=== PATIENT | female | born 1965 | race Caucasian/White ===

== ENCOUNTER → 2020-04-11 | Outpatient (CLI) | payer BC ==
[2020-04-11 13:28] VITALS: BP 140/88; PULSE 72; RESP 18; TEMP 98.3; BMI 41.6
--- NOTE | 2020-04-11 14:15 | P.HPBAR ---
Bariatric H&P - History & Physicial H&P Date: 04/11/20 History & Physicial: Visit/CC: lap band removal Patient initial contact: Initial weight: Initial weight in pounds: Height: 5 ft 4 in Initial BMI: Last weight: Current weight: 109.996 kg Current weight in pounds: 242.50 Current BMI: 41.6 [place] body weight (based on NIH guidelines): 54.431 kg Excess body weight loss: The patient is a 54 year-old F who presents for Bariatric Assessment. Patient presents today for LAP-BAND follow-up. She has not been seen in many years. She has complaints of GERD and dysphagia. She's had trouble keeping food down. Past Medical History Past Medical History: GERD/Reflux Additional Past Medical History / Comment(s): arthritis History of Any Multi-Drug Resistant Organisms: None Reported Past Surgical History: Bariatric Surgery, Section, Cholecystectomy, Hysterectomy, Orthopedic Surgery, Tonsillectomy Additional Past Surgical History / Comment(s): lap band; bilat knee replacement Past Anesthesia/Blood Transfusion Reactions: No Reported Reaction Additional Past Anesthesia/Blood Transfusion Reaction / Comm: hard time waking up post anesthesia Past Psychological History: Depression Smoking Status: Former smoker Surgical - Exam Vital Signs Temp Pulse Resp BP Pulse Ox 98.3 F 72 18 140/88 97 04/11/20 13:11 04/11/20 13:11 04/11/20 13:11 04/11/20 13:11 04/11/20 13:11 - General well developed, well nourished, no distress - Eyes PERRL - ENT normal pinna - Neck no masses - Respiratory normal expansion - Cardiovascular Rhythm: regular - Abdomen Abdomen: soft, non tender Bariatric Assessment & Plan Plan: GERD, dysphagia. Patient LAP-BAND was emptied she had 9 mL removed the band. Patient will be tentatively be off her aspirin conversion to sleeve gastrectomy. We went over the risks and benefits of the sleeve gastrectomy procedure. She'll follow-up in 8 weeks. Bariatric Checklist Checklist: Plan: Checklist: EGD: 1. Hiatal hernia: 2. H. Pylori: HgbA1c: Vitamin D: Smoking: Primary care physician referral: Dr. Pardo Psychiatry clearance: Cardiology clearance: Sleep study: Diet journal: VTE risk score: VTE risk level: Rehab needs at discharge:
== END | disposition home or self-care (01) ==
LOC: BARWHC3 12:51
PROVIDERS: ATTEND Surgery
DX: Z46.51 Encounter for fitting and adjustment of gastric lap band (principal); Z98.84 Bariatric surgery status; Z90.49 Acquired absence of other specified parts of digestive tract
CPT/HCPCS: 99212

== ENCOUNTER 2020-06-27 12:14 | Day surgery (SDC) | payer BC ==
[2020-06-24 12:06] VITALS: BMI 42.0
[2020-06-27 13:03] VITALS: RESP 16; TEMP 98.1
[2020-06-27] MEDS ORDERED: LACTATED RINGERS 1,000 ML IV ONE (13:03)
[2020-06-27] MEDS ORDERED: LIDOCAINE 1% (10MG/ML) FOR IV START INTRADERMA ONE (13:04)
[2020-06-27] MEDS ORDERED: PROPOFOL 10 MG/ML 20 ML VIAL IV ONE (14:18)
[2020-06-27] MEDS ORDERED: LIDOCAINE 1% INJ 10MG/ML (20 ML MDV) ONE (14:18)
--- NOTE | 2020-06-27 14:31 | P.GSHP ---
History of Present Illness H&P Date: 06/27/20 Chief Complaint: GERD, morbid obesity 84-year-old female undergoing workup for sleeve gastrectomy. Patient plaints of GERD. Past Medical History Past Medical History: GERD/Reflux, Osteoarthritis (OA) Additional Past Medical History / Comment(s): arthritis History of Any Multi-Drug Resistant Organisms: None Reported Past Surgical History: Bariatric Surgery, Section, Cholecystectomy, Hysterectomy, Orthopedic Surgery, Tonsillectomy Additional Past Surgical History / Comment(s): lap band; RIGHT TOTAL KNEE, LEFT TOTAL KNEE Past Anesthesia/Blood Transfusion Reactions: Motion Sickness Additional Past Anesthesia/Blood Transfusion Reaction / Comment(s): " hard time waking up post anesthesia" TAKES LONGER WAKING UP" Smoking Status: Former smoker - Past Family History Father Family Medical History: Cancer, Deep Vein Thrombosis (DVT) Additional Family Medical History / Comment(s): TONGUE CANCER Medications and Allergies Home Medications Medication Instructions Recorded Confirmed Type Acetaminophen/Diphenhydramine 1 tab PO HS 04/11/20 06/24/20 History [Tylenol PM 500-25mg] Calcipotriene/Betamethasone 1 applic TOPICAL DAILY 04/11/20 06/24/20 History [Taclonex Ointment] Ibuprofen 200 mg PO Q8H PRN 04/11/20 06/24/20 History Multivitamin [Multivitamins Adult 1 tab PO HS 04/11/20 06/24/20 History Gummies] buPROPion [Wellbutrin] 100 mg PO HS 04/11/20 06/24/20 History methocarbamoL [Robaxin] 500 mg PO HS 04/11/20 06/24/20 History Allergies Allergy/AdvReac Type Severity Reaction Status Date / Time etanercept [From Enbrel] Allergy Rash/Hives Verified 06/27/20 12:49 Surgical - Exam Vital Signs Temp Pulse Resp BP Pulse Ox 98.1 F 71 16 146/78 96 06/27/20 13:01 06/27/20 13:01 06/27/20 13:01 06/27/20 13:01 06/27/20 13:01 - General well developed, well nourished, no distress - Eyes PERRL - ENT normal pinna - Neck no masses - Respiratory normal expansion - Cardiovascular Rhythm: regular - Abdomen Abdomen: soft, non tender Assessment and Plan Assessment: Morbid obesity, BMI 43 GERD we'll perform EGD.
--- NOTE | 2020-06-27 14:38 | P.OP ---
Date of Procedure: 06/27/20 Preoperative Diagnosis: Morbid obesity GERD Postoperative Diagnosis: Antral gastritis Procedure(s) Performed: EGD Anesthesia: MAC Surgeon: Lui Mane Pathology: other Condition: stable Disposition: PACU Description of Procedure: The patient's placed on the endoscopy table in the lateral position. She received IV sedation. The gastric was placed oropharynx passed into the esophagus and into the stomach. Scope was then placed through the pylorus. The first and second portion of the duodenum appeared normal. Scope was then brought back the antrum and this appeared mildly inflamed. A biopsies performed. Scope was a flexed and remainder of the stomach appeared normal. There is no evidence of a hiatal hernia. The GE junction was at 440 cms. The distal esophagus appeared appeared mildly inflamed a biopsies performed.. The proximal esophagus. Normal. Scope withdrawn for patient.
[2020-06-27 14:47] VITALS: BP 120/83; PULSE 70
== END 2020-06-27 15:02 | disposition home or self-care (01) ==
LOC: ORWHC2ENDO 12:14
PROVIDERS: ATTEND Surgery
DX: K21.00 Gastro-esophageal reflux disease with esophagitis, without bleeding (principal); K29.50 Unspecified chronic gastritis without bleeding; E66.01 Morbid (severe) obesity due to excess calories; M19.90 Unspecified osteoarthritis, unspecified site; K08.89 Other specified disorders of teeth and supporting structures; K21.9 Gastro-esophageal reflux disease without esophagitis; Z68.41 Body mass index [BMI] 40.0-44.9, adult; Z98.84 Bariatric surgery status; Z98.890 Other specified postprocedural states; Z90.49 Acquired absence of other specified parts of digestive tract; Z90.710 Acquired absence of both cervix and uterus; Z90.89 Acquired absence of other organs; Z96.653 Presence of artificial knee joint, bilateral; Z87.898 Personal history of other specified conditions; Z91.89 Other specified personal risk factors, not elsewhere classified; Z87.891 Personal history of nicotine dependence; Z80.0 Family history of malignant neoplasm of digestive organs; Z82.49 Family history of ischemic heart disease and other diseases of the circulatory system; Z79.899 Other long term (current) drug therapy; Z79.52 Long term (current) use of systemic steroids; Z79.1 Long term (current) use of non-steroidal anti-inflammatories (NSAID); Z88.8 Allergy status to other drugs, medicaments and biological substances
CPT/HCPCS: 88305; 43239; J2001; J2704

== ENCOUNTER → 2020-07-04 | Outpatient (CLI) | payer BC ==
[2020-07-04 13:11] VITALS: BP 130/82; PULSE 79; RESP 18; TEMP 98.3; BMI 44.1
--- NOTE | 2020-07-04 14:22 | P.HPBAR ---
Bariatric H&P - History & Physicial H&P Date: 07/04/20 History & Physicial: Visit/CC: presurgical Patient initial contact: Initial weight: Initial weight in pounds: Height: 5 ft 4 in Initial BMI: Last weight: Current weight: 116.8 kg Current weight in pounds: 257.50 Current BMI: 44.1 [place] body weight (based on NIH guidelines): 54.431 kg Excess body weight loss: The patient is a 55 year-old F who presents for Bariatric Assessment. Patient presents today for presurgical consultation. She is doing a gastric band to sleeve conversion. She has a date later on this month for surgery. Patient has chronic issues dysphagia and GERD. Past Medical History Past Medical History: GERD/Reflux, Osteoarthritis (OA) Additional Past Medical History / Comment(s): arthritis History of Any Multi-Drug Resistant Organisms: None Reported Past Surgical History: Bariatric Surgery, Section, Cholecystectomy, Hysterectomy, Orthopedic Surgery, Tonsillectomy Additional Past Surgical History / Comment(s): lap band; RIGHT TOTAL KNEE, LEFT TOTAL KNEE Past Anesthesia/Blood Transfusion Reactions: Motion Sickness Additional Past Anesthesia/Blood Transfusion Reaction / Comm: " hard time waking up post anesthesia" TAKES LONGER WAKING UP" Past Psychological History: Depression Smoking Status: Former smoker Past Alcohol Use History: Rare Additional Past Alcohol Use History / Comment(s): STARTED SMOKING AT AGE 9 QUIT SMOKING IN 2013 SMOKED 1/4 PPD Past Drug Use History: None Reported - Past Family History Father Family Medical History: Cancer, Deep Vein Thrombosis (DVT) Additional Family Medical History / Comment(s): TONGUE CANCER Surgical - Exam Vital Signs Temp Pulse Resp BP 98.3 F 79 18 130/82 07/04/20 13:06 07/04/20 13:06 07/04/20 13:06 07/04/20 13:06 BMI 44 - General well developed, well nourished, no distress - Eyes PERRL - ENT normal pinna, normal nares - Neck no masses - Respiratory normal expansion - Cardiovascular Rhythm: regular - Abdomen Abdomen: soft, non tender Bariatric Assessment & Plan Plan: Morbid obesity, BMI 44. Patient will undergo conversion to sleeve gastrectomy later this month. She understands the risks and benefits of surgery. She understands the risk of potential staple line disruption, bleeding and scarring. Bariatric Checklist Checklist: Plan: Checklist: EGD: 1. Hiatal hernia: 2. H. Pylori: HgbA1c: Vitamin D: Smoking: Primary care physician referral: Dr. Pardo Psychiatry clearance: Cardiology clearance: Sleep study: Diet journal: VTE risk score: VTE risk level: Rehab needs at discharge:
[2020-07-04 14:25] LABS: Basophils # (A) 0.1 k/uL (0-0.2); Basophils % (A) 1 %; Eosinophils # (A) 0.2 k/uL (0-0.7); Eosinophils % (A) 3 %; HCT 44.4 % (34.0-46.0); HGB 14.6 gm/dL (11.4-16.0); Lymphocytes % (A) 34 %; MCHC 32.8 g/dL (31.0-37.0); MCV 91.5 fL (80.0-100.0); Monocytes # (A) 0.3 k/uL (0-1.0); Monocytes % (A) 5 %; Neutrophils # (A) 3.3 k/uL (1.3-7.7); Neutrophils % (A) 56 %; Platelet Count 275 k/uL (150-450); RBC 4.86 m/uL (3.80-5.40); RDW 12.8 % (11.5-15.5); WBC 5.9 k/uL (3.8-10.6)
[2020-07-04 14:39] LABS: ALT 20 U/L (4-34); AST 22 U/L (14-36); African American GFR (CKD) >90 (>60 ml/min/1.73 sqM); Albumin 4.4 g/dL (3.5-5.0); Alkaline Phosphatase 80 U/L (38-126); Anion Gap 9 mmol/L; Blood Urea Nitrogen 12 mg/dL (7-17); Calcium 9.5 mg/dL (8.4-10.2); Carbon Dioxide 28 mmol/L (22-30); Chloride 103 mmol/L (98-107); Glucose 95 mg/dL (74-99); Non-African American GFR(CKD) >90 (>60 ml/min/1.73 sqM); Potassium 4.4 mmol/L (3.5-5.1); Sodium 140 mmol/L (137-145); Total Bilirubin 0.3 mg/dL (0.2-1.3); Total Protein 7.4 g/dL (6.3-8.2)
== END | disposition home or self-care (01) ==
LOC: BARWHC3 08:26
PROVIDERS: ATTEND Surgery
DX: E66.01 Morbid (severe) obesity due to excess calories (principal); Z71.3 Dietary counseling and surveillance
CPT/HCPCS: 36415; 80053; 85025; 93005; 97804; 99211

== ENCOUNTER 2020-07-18 07:45 | Inpatient (IN) | payer BC ==
[~2020-07-18 07:45] MED LIST: DEXAMETHASONE SOD PHOSPHATE 4 MG/ML 1 ML VIAL IV ONE; ENOXAPARIN 40 MG/0.4 ML SYRINGE SQ PRN; LIDOCAINE 1% (10MG/ML) FOR IV START INTRADERMA PRN; ONDANSETRON 4 MG/2 ML VIAL IVP ONE; SCOPOLAMINE 1.5MG/72HR PATCH TRANSDERM ONE
[2020-07-18] MEDS: LACTATED RINGERS 1,000 ML IV SCH (08:55)
--- NOTE | 2020-07-18 09:46 | P.GSHP ---
History of Present Illness H&P Date: 07/18/20 Chief Complaint: GERD, dysphagia related to her LAP-BAND, morbid obesity Is a 55-year-old female been safe for removal of LAP-BAND system and conversion sleeve gastrectomy. She's had issues with chronic GERD and dysphagia related to her LAP-BAND. Patient's BMI is 42 she is morbidly obese. She is aware of the possible Surgery including gastric injury, bleeding, scarring Past Medical History Past Medical History: GERD/Reflux, Osteoarthritis (OA) Additional Past Medical History / Comment(s): arthritis History of Any Multi-Drug Resistant Organisms: None Reported Past Surgical History: Bariatric Surgery, Section, Cholecystectomy, Hysterectomy, Orthopedic Surgery, Tonsillectomy Additional Past Surgical History / Comment(s): lap band; RIGHT TOTAL KNEE, LEFT TOTAL KNEE Past Anesthesia/Blood Transfusion Reactions: Previous Problems w/ Anesthesia, Motion Sickness Additional Past Anesthesia/Blood Transfusion Reaction / Comment(s): " hard time waking up post anesthesia" TAKES LONGER WAKING UP" Smoking Status: Former smoker - Past Family History Father Family Medical History: Cancer, Deep Vein Thrombosis (DVT) Additional Family Medical History / Comment(s): TONGUE CANCER Medications and Allergies Home Medications Medication Instructions Recorded Confirmed Type Acetaminophen/Diphenhydramine 1 tab PO HS 04/11/20 07/18/20 History [Tylenol PM 500-25mg] Calcipotriene/Betamethasone 1 applic TOPICAL DAILY PRN 04/11/20 07/18/20 History [Taclonex Ointment] Ibuprofen 200 mg PO Q8H PRN 04/11/20 07/18/20 History Multivitamin [Multivitamins Adult 1 tab PO HS 04/11/20 07/18/20 History Gummies] buPROPion [Wellbutrin] 100 mg PO HS 04/11/20 07/18/20 History methocarbamoL [Robaxin] 500 mg PO HS 04/11/20 07/18/20 History Allergies Allergy/AdvReac Type Severity Reaction Status Date / Time etanercept [From Enbrel] Allergy Rash/Hives Verified 07/18/20 08:59 Surgical - Exam Vital Signs Temp Pulse Resp BP Pulse Ox 96.9 F L 71 16 111/62 98 07/18/20 08:40 07/18/20 08:40 07/18/20 08:40 07/18/20 08:40 07/18/20 08:40 - General well developed, well nourished, no distress - Eyes PERRL - ENT normal pinna - Neck no masses - Respiratory normal expansion - Cardiovascular Rhythm: regular - Abdomen Abdomen: soft, non tender Assessment and Plan Assessment: Morbid obesity, BMI 42 Patient will undergo removal of LAP-BAND and conversion sleeve gastrectomy.
[2020-07-18] MEDS ORDERED: BUPIVACAINE (PF) 0.25% 30 ML VIAL SQ ONE ×2 (09:59→10:29)
[2020-07-18] MEDS ORDERED: NEOSTIGMINE 1 MG/ML 10 ML VIAL ONE (10:05)
[2020-07-18] MEDS ORDERED: fentaNYL (PF) 50 MCG/ML 2 ML AMP ONE (10:05)
[2020-07-18] MEDS ORDERED: LIDOCAINE 1% INJ 10MG/ML (20 ML MDV) ONE (10:05)
[2020-07-18] MEDS ORDERED: SUCCINYLCHOLINE CHLORIDE 100 MG/5 ML SYR IV ONE (10:05)
[2020-07-18] MEDS ORDERED: ROCURONIUM 10 MG/ML (5 ML VIAL) IV ONE (10:05)
[2020-07-18] MEDS ORDERED: KETOROLAC 15 MG/ML 1 ML VIAL ONE (10:05)
[2020-07-18] MEDS ORDERED: PROPOFOL 10 MG/ML 20 ML VIAL IV ONE (10:05)
[2020-07-18] MEDS ORDERED: MIDAZOLAM 2 MG/2 ML VIAL ONE (10:05)
[2020-07-18] MEDS ORDERED: GLYCOPYRROLATE 0.2 MG/ML 2 ML VIAL ONE (10:05)
[2020-07-18] MEDS ORDERED: SIMETHICONE 40 MG/0.6 ML DROPS 2,000 MG/30 ML BOTTLE PO PRN (11:45)
[2020-07-18] MEDS ORDERED: HYDROmorphone 1 MG/ML 1 ML SYRINGE IVP PRN (11:45)
[2020-07-18] MEDS ORDERED: NALOXONE 0.4 MG/ML 1 ML VIAL IV PRN (11:45)
[2020-07-18] MEDS ORDERED: ONDANSETRON 4 MG/2 ML VIAL IVP PRN (11:45)
[2020-07-18] MEDS ORDERED: HYOSCYAMINE ORAL DROPS 1.875 MG/15 ML BOTTLE PO PRN (11:45)
[2020-07-18] MEDS ORDERED: diphenhydrAMINE 50 MG/ML 1 ML VIAL IVP PRN (11:45)
--- NOTE | 2020-07-18 11:45 | P.OP ---
Date of Procedure: 07/18/20 Preoperative Diagnosis: Dysphagia Morbid obesity, BMI 42 Postoperative Diagnosis: Dysphagia, morbid obesity 42 Procedure(s) Performed: Removal of LAP-BAND system Sleeve gastrectomy Anesthesia: ROD Surgeon: Lui Mane Estimated Blood Loss (ml): 10 Pathology: other (Gastric remnant) Condition: stable Disposition: PACU Description of Procedure: The patient was placed on the operating room table in the supine position. She received general anesthesia and then was placed in dorsal lithotomy position. Her abdomen was prepped and draped in sterile fashion. The skin incision sites were anesthetized 1% local Xylocaine. And then the skin was incised with an 11 blade in the left lateral position. Using a blade less trocar under direct visualization the peritoneal cavity was entered. The abdomen was insufflated and then a 5 mm laparoscope was placed into the peritoneal cavity. A 5 mm trocar was placed in the right epigastric, and right lateral position. A 15 mm trocar was placed in the supra-umbilical position and another 5 mm trocar was placed in the left lateral position. The left lateral lobe of the liver was retracted. The LAP-BAND port site was incised and the LAP-BAND port was dissected free using cautery. The connecting tube was then cut and the port was sent to pathology. The LAP-BAND device was then dissected free from the stomach. The adhesions were lysed. The anterior gastric wall plication was taken down with sharp dissection. The LAP-BAND device was then withdrawn from around stomach. The stomach was visualized. The greater curvature of the stomach was then dissected using the Harmonic scissors. The dissection occurred approximately 5 cm from the pylorus to the level of the left feliberto. There was no hiatal hernia seen. At this point a 40-[place] bougie dilator was placed the oropharynx and passed into the esophagus and into the stomach by the SPECIAL EDUCATION INSTRUCTOR. The sleeve gastrectomy was performed by using the powered echelon stapler with a seam guard buttress material. Sequential firings of the stapler were performed. The gastric remnant was then brought out through the 15 mm trocar site. The dilator was withdrawn. And a orogastric tube was replaced into the stomach. The stomach was insufflated with 200 mL of methylene blue normal saline. There was no evidence of extravasation. The abdomen was irrigated there is no bleeding seen. The Pro-Micaela device was used to close the 15 mm trocar with 0 Vicryl. Skin was closed with interrupted 3-0 Monocryl sutures once the trochars withdrawn. Dermabond dressing was applied. Patient was sent to recovery in stable condition.
[2020-07-18] MEDS ORDERED: ONDANSETRON 4 MG/2 ML VIAL IVP ONE (12:06)
[2020-07-18] MEDS: HYDROmorphone 0.5 MG/0.5 ML SYRINGE IVP PRN ×4 (12:10→12:55)
[2020-07-18] MEDS ORDERED: SODIUM CHLORIDE 0.9% 1,000 ML IV ONE (12:40)
[2020-07-18] MEDS: KETOROLAC 15 MG/ML 1 ML VIAL IVP SCH ×3 (13:58→17:04)
[2020-07-18] MEDS: 0.9% NACL WITH KCL 20 MEQ/L 1,000 ML IV SCH ×2 (14:51→17:05)
--- NOTE | 2020-07-18 15:43 | P.CONS ---
History of Present Illness - Reason for Consult Preoperative medical management. - History of Present Illness Patient is a pleasant 55-year-old female admitted for elective sleeve gastrectomy sepsis and underwent surgery patient is still drowsy coming out of anesthesia having the abdominal pain soreness in the surgical site area and they're quite a bit nauseous. Patient denied any fever chills patient denied any dysuria. Patient doesn't have any Pierre catheter at this time. Review of Systems REVIEW OF SYSTEMS: CONSTITUTIONAL: No fever, no malaise, no fatigue. HEENT: No recent visual problems or hearing problems. Denied any sore throat. CARDIOVASCULAR: No chest pain, orthopnea, PND, no palpitations, no syncope. PULMONARY: No shortness of breath, no cough, no hemoptysis. GASTROINTESTINAL: As mentioned in HPI NEUROLOGICAL: No headaches, no weakness, no numbness. HEMATOLOGICAL: Denies any bleeding or petechiae. GENITOURINARY: Denies any burning micturition, frequency, or urgency. MUSCULOSKELETAL/RHEUMATOLOGICAL: Denies any joint pain, swelling, or any muscle pain. ENDOCRINE: Denies any polyuria or polydipsia. The rest of the 14-point review of systems is negative. Past Medical History Past Medical History: GERD/Reflux, Osteoarthritis (OA) Additional Past Medical History / Comment(s): arthritis History of Any Multi-Drug Resistant Organisms: None Reported Past Surgical History: Bariatric Surgery, Section, Cholecystectomy, Hysterectomy, Orthopedic Surgery, Tonsillectomy Additional Past Surgical History / Comment(s): lap band; RIGHT TOTAL KNEE, LEFT TOTAL KNEE Past Anesthesia/Blood Transfusion Reactions: Previous Problems w/ Anesthesia, Motion Sickness Additional Past Anesthesia/Blood Transfusion Reaction / Comm: " hard time waking up post anesthesia" TAKES LONGER WAKING UP" Past Psychological History: Depression Smoking Status: Former smoker Past Alcohol Use History: Rare Additional Past Alcohol Use History / Comment(s): STARTED SMOKING AT AGE 9 QUIT SMOKING IN 2013 SMOKED 1/4 PPD Past Drug Use History: None Reported - Past Family History Father Family Medical History: Cancer, Deep Vein Thrombosis (DVT) Additional Family Medical History / Comment(s): TONGUE CANCER Medications and Allergies Home Medications Medication Instructions Recorded Confirmed Type Acetaminophen/Diphenhydramine 1 tab PO HS 04/11/20 07/18/20 History [Tylenol PM 500-25mg] Calcipotriene/Betamethasone 1 applic TOPICAL DAILY PRN 04/11/20 07/18/20 History [Taclonex Ointment] Ibuprofen 200 mg PO Q8H PRN 04/11/20 07/18/20 History Multivitamin [Multivitamins Adult 1 tab PO HS 04/11/20 07/18/20 History Gummies] buPROPion [Wellbutrin] 100 mg PO HS 04/11/20 07/18/20 History methocarbamoL [Robaxin] 500 mg PO HS 04/11/20 07/18/20 History Allergies Allergy/AdvReac Type Severity Reaction Status Date / Time etanercept [From Enbrel] Allergy Rash/Hives Verified 07/18/20 08:59 Physical Exam Vitals: Vital Signs Temp Pulse Pulse Resp BP BP Pulse Ox 07/18/20 14:46 98.0 F 57 L 16 152/91 90 L 07/18/20 13:30 65 16 149/82 97 07/18/20 13:15 78 16 164/88 97 07/18/20 13:00 61 16 156/93 97 07/18/20 12:45 64 16 155/88 97 07/18/20 12:34 81 16 154/75 97 07/18/20 12:11 79 18 165/95 96 07/18/20 11:56 97.1 F L 85 16 153/97 96 07/18/20 08:40 96.9 F L 71 16 111/62 98 Intake and Output 07/18/20 07/18/20 07/18/20 06:59 14:59 22:59 Intake Total 1050 Output Total 20 Balance 1030 Intake: IV 1050 Output: Estimated Blood Loss 20 Other: Weight 111.1 kg PHYSICAL EXAMINATION: GENERAL: The patient is alert and oriented x3, not in any acute distress. Obese HEENT: Pupils are round and equally reacting to light. EOMI. No scleral icterus. No conjunctival pallor. Normocephalic, atraumatic. No pharyngeal erythema. No thyromegaly. CARDIOVASCULAR: S1 and S2 present. No murmurs, rubs, or gallops. PULMONARY: Chest is clear to auscultation, no wheezing or crackles. ABDOMEN: Soft, nontender, nondistended, normoactive bowel sounds. No palpable organomegaly. MUSCULOSKELETAL: No joint swelling or deformity. EXTREMITIES: No cyanosis, clubbing, or pedal edema. NEUROLOGICAL: Gross neurological examination did not reveal any focal deficits. SKIN: No rashes. Assessment and Plan Plan: -Morbid obesity: Status post sleeve gastrectomy DVT prophylaxis as per primary service patient to pain is fairly well controlled on present regimen. -Depression continue with the bupropion whenever she can tolerate by mouth medications -Gastroesophageal reflux disease patient was started on IV Protonix hold off on nonsteroidal anti-inflammatory medications
[2020-07-18] MEDS ORDERED: ONDANSETRON 4 MG/2 ML VIAL IVP STA (15:49)
[2020-07-18] MEDS ORDERED: DEXAMETHASONE SOD PHOSPHATE 4 MG/ML 1 ML VIAL IV PRN (15:53)
[2020-07-18] MEDS: METOCLOPRAMIDE 5 MG/ML 2 ML VIAL IVP SCH (16:32)
[2020-07-18] MEDS: MORPHINE SULFATE 4 MG/ML SYRINGE IVP PRN (16:35)
[2020-07-18] MEDS: ALBUTEROL NEBULIZED 2.5 MG/3 ML INHALATION SCH ×2 (17:02→20:53)
[2020-07-18] MEDS ORDERED: KETOROLAC 15 MG/ML 1 ML VIAL IVP STA (18:36)
[2020-07-18] MEDS: buPROPion XL 150 MG TAB.ER.24H PO SCH (19:54)
[2020-07-18] MEDS: ENOXAPARIN 40 MG/0.4 ML SYRINGE SQ SCH (19:54)
[2020-07-19] MEDS: KETOROLAC 15 MG/ML 1 ML VIAL IVP SCH ×4 (00:28→17:11)
[2020-07-19] MEDS: METOCLOPRAMIDE 5 MG/ML 2 ML VIAL IVP SCH ×4 (00:28→17:12)
[2020-07-19] MEDS: LACTATED RINGERS 1,000 ML IV SCH (01:56)
[2020-07-19] MEDS: 0.9% NACL WITH KCL 20 MEQ/L 1,000 ML IV SCH ×3 (02:55→14:27)
[2020-07-19] MEDS: ENOXAPARIN 40 MG/0.4 ML SYRINGE SQ SCH ×2 (06:43→20:54)
[2020-07-19] MEDS: PANTOPRAZOLE 40 MG/10 ML VIAL IV SCH (06:45)
[2020-07-19] MEDS: ALBUTEROL NEBULIZED 2.5 MG/3 ML INHALATION SCH ×4 (09:02→19:39)
--- NOTE | 2020-07-19 09:13 | FL ---
EXAMINATION TYPE: FL UGI DATE OF EXAM: 07/19/2020 COMPARISON: NONE HISTORY: Postop bariatric surgery TECHNIQUE: A single contrast UGI study is performed. FINDINGS: Patient was given water-soluble contrast to drink. 1 minute 27 seconds fluoroscopy time, 5 intraoperative images document the procedure Basilar atelectatic changes are present. Postop changes are noted in left upper quadrant. Contrast ma terial courses to the level of the gastroesophageal junction. Some reflux was noted into the distal t horacic esophagus. Contrast does not pass distal to the surgical bed. There is no evident leak. IMPRESSION: Abnormal exam. There is obstruction present. Postop changes, no evident leak. A Red level critical message alert has been initiated for Lui Mane MD via the [employer] Critical Results System on 07/19/2020 9:11 AM. This message alert has been sent to Lui Mane MD via the preferences provided by the clinician for the receipt of Radiology Critical Findings. [employer] age ID [id number].
[2020-07-19 11:04] VITALS: BMI 42.0
[2020-07-19 11:21] LABS: Basophils # (A) 0.07 X 10*3/uL (0.00-0.10); Basophils % (A) 0.7 %; Eosinophils # (A) 0.04 X 10*3/uL (0.04-0.35); Eosinophils % (A) 0.4 %; HCT 40.2 % (37.2-46.3); HGB 12.5 g/dL (12.0-15.0); Lymphocytes # (A) 1.27 X 10*3/uL (0.90-5.00); Lymphocytes % (A) 13.3 %; MCH 29.2 pg (27.0-32.0); MCHC 31.1 g/dL (32.0-37.0); MCV 93.9 fL (80.0-97.0); Mean Platelet Volume 11.3 fL (9.5-12.2); Monocytes # (A) 0.92 X 10*3/uL (0.20-1.00); Monocytes % (A) 9.7 %; Neutrophils # (A) 7.18 X 10*3/uL (1.80-7.70); Neutrophils % (A) 75.5 %; Platelet Count 248 X 10*3/uL (140-440); RBC 4.28 X 10*6/uL (4.10-5.20); RDW 13.1 % (11.5-14.5); WBC 9.52 X 10*3/uL (4.50-10.00)
[2020-07-19] MEDS: DEXAMETHASONE SOD PHOSPHATE 4 MG/ML 1 ML VIAL IV SCH ×2 (11:33→17:11)
[2020-07-19 11:35] LABS: African American GFR (CKD) 118.1 (60.0-200.0); Anion Gap 7.8 mmol/L (4.00-12.00); Calcium 8.2 mg/dL (8.7-10.3); Carbon Dioxide 25.2 mmol/L (21.6-31.8); Magnesium 1.7 mg/dL (1.5-2.4); Non-African American GFR(CKD) 101.9 (60.0-200.0); Phosphorus 3.2 mg/dL (2.4-5.1); Potassium 4.1 mmol/L (3.5-5.5)
[2020-07-19] MEDS: MORPHINE SULFATE 4 MG/ML SYRINGE IVP PRN (12:28)
--- NOTE | 2020-07-19 14:10 | P.PN ---
Subjective Progress Note Date: 07/19/20 CHIEF COMPLAINT: Dysphagia, morbid obesity HISTORY OF PRESENT ILLNESS: Patient seen and examined with Dr. Mane. Patient is postop day #1 status post sleeve gastrectomy and removal of lap band system. Patient was having nausea and vomiting yesterday. Her pain is controlled. She was a little tachycardic yesterday. Heart rate is better at 98. She is afebrile. WBC 9.52 magnesium 1.7 Upper GI obstruction present. No evident leak. PHYSICAL EXAM: VITAL SIGNS: Reviewed. GENERAL: Well-developed in no acute distress. HEENT: No sclera icterus. Extraocular movements grossly intact. Moist buccal mucosa. Head is atraumatic, normocephalic. ABDOMEN: Soft. Nondistended. Incision sites clean dry and intact NEUROLOGIC: Alert and oriented. Cranial nerves II through XII grossly intact. ASSESSMENT: 1. Morbid obesity and dysphagia status post sleeve gastrectomy and removal of lap band system 2. Obstruction noted on upper GI. Patient could have inflammation due to the vomiting she was experiencing yesterday. PLAN: -Patient started on IV dexamethasone -Continue with IV fluids -Continue antiemetics -Encourage patient to ambulate and use incentive spirometer -Continue pain medication as needed -Keep patient nothing by mouth except for ice chips and popsicles Physician Molding Line Operator note has been reviewed by physician. Signing provider agrees with the documented findings, assessment, and plan of care. Objective - Vital Signs Vital signs: Vital Signs Temp 98.5 F 07/19/20 07:43 Pulse 88 07/19/20 09:14 Resp 16 07/19/20 07:43 BP 143/80 07/19/20 07:43 Pulse Ox 97 07/19/20 07:43 Intake & Output 07/18/20 07/19/20 07/19/20 18:59 06:59 18:59 Intake Total 1050 Output Total 20 Balance 1030 Weight 111.1 kg 111.1 kg Intake: IV 1050 Output: Estimated Blood Loss 20 Other: Voiding Method Toilet Toilet # Voids 1 1 - Labs CBC & Chem 7: 07/19/20 06:10 07/19/20 06:10 Labs: Abnormal Lab Results - Last 24 Hours (Table) 07/19/20 07/19/20 Range/Units 06:10 06:10 MCHC 31.1 L (32.0-37.0) g/dL BUN 8.0 L (9.0-27.0) mg/dL Calcium 8.2 L (8.7-10.3) mg/dL
[2020-07-19] MEDS ORDERED: MAGNESIUM SULFATE-D5W PMX 1 GM in DEXTROSE/WATER 1 100ML.BAG IVPB ONE (14:30)
--- NOTE | 2020-07-19 15:11 | P.PN ---
Subjective Progress Note Date: 07/19/20 - Reason for Consult Preoperative medical management. - History of Present Illness Patient is a pleasant 55-year-old female admitted for elective sleeve ga strectomy and underwent surgery patient is still drowsy coming out of anesthesia having the abdominal pain soreness in the surgical site area and they're quite a bit nauseous. Patient denied any fever chills patient denied any dysuria. Patient doesn't have any Pierre catheter at this time. 07/19/2020 Patient is seen and evaluated in follow-up currently underwent sleeve gastrectomy and is lethargic although arousable. Patient denies any gas or bowel movements at this time but states she is burping. Incentive spirometer at the bedside and instructed the patient to continue using at least 10 times every hour while awake. Patient is to continue with nothing by mouth except ice chips and popsicles per surgery. Labs within normal limits. Magnesium slightly low at 1.7 and being replaced. Will repeat labs. Patient also instructed to increase activity as tolerated. Patient had upper GI series done today showing obstruction present and surgery is aware. Review of systems: Constitutional: Reports fatigue, no reports of fever, or chills Cardiovascular: No reports of chest pain or palpitations Respiratory: No reports of shortness of breath or cough GI: Reports occasional nausea,no reports of vomiting, or diarrhea : No reports of dysuria or retention Neurovascular: No reports of weakness or numbness All medications have been reviewed Objective - Vital Signs Vital signs: Vital Signs Temp 98.5 F 07/19/20 07:43 Pulse 88 07/19/20 09:14 Resp 16 07/19/20 07:43 BP 143/80 07/19/20 07:43 Pulse Ox 97 07/19/20 07:43 Intake & Output 07/18/20 07/19/20 07/19/20 18:59 06:59 18:59 Intake Total 1050 Output Total 20 Balance 1030 Weight 111.1 kg 111.1 kg Intake: IV 1050 Output: Estimated Blood Loss 20 Other: Voiding Method Toilet Toilet # Voids 1 1 - Exam GENERAL: The patient is asleep although arousable, alert and oriented x3, not in any acute distress. Obese HEENT: Pupils are round and equally reacting to light. EOMI. No scleral icterus. No conjunctival pallor. Normocephalic, atraumatic. No pharyngeal erythema. No thyromegaly. CARDIOVASCULAR: S1 and S2 present. No murmurs, rubs, or gallops. PULMONARY: Chest is clear to auscultation, no wheezing or crackles. ABDOMEN: Soft, mildly tender on palpation, nondistended, no bowel sounds noted. No palpable organomegaly. MUSCULOSKELETAL: No joint swelling or deformity. EXTREMITIES: No cyanosis, clubbing, or pedal edema. NEUROLOGICAL: Gross neurological examination did not reveal any focal deficits. SKIN: No rashes. - Labs CBC & Chem 7: 07/19/20 06:10 07/19/20 06:10 Labs: Abnormal Lab Results - Last 24 Hours (Table) 07/19/20 07/19/20 Range/Units 06:10 06:10 MCHC 31.1 L (32.0-37.0) g/dL BUN 8.0 L (9.0-27.0) mg/dL Calcium 8.2 L (8.7-10.3) mg/dL Assessment and Plan Assessment: -Morbid obesity: Status post sleeve gastrectomy,patient to pain is fairly well controlled on present regimen. -Depression continue with the bupropion whenever she can tolerate by mouth medications -Gastroesophageal reflux disease patient was started on IV Protonix hold off on nonsteroidal anti-inflammatory medications -DVT prophylaxis as per primary service, on subcutaneous Lovenox -GI prophylaxis: Protonix -Full code Plan: Continue with current medications. Instructed to continue using incentive spirometer at least 10 times every hour. Patient is currently nothing by mouth except for ice chips and popsicles per surgery and will continue to follow along with surgery. Will repeat a.m. labs and continue to monitor vital signs closely.
[2020-07-19] MEDS: buPROPion XL 150 MG TAB.ER.24H PO SCH (20:55)
[2020-07-20] MEDS: DEXAMETHASONE SOD PHOSPHATE 4 MG/ML 1 ML VIAL IV SCH ×3 (00:12→11:55)
[2020-07-20] MEDS: KETOROLAC 15 MG/ML 1 ML VIAL IVP SCH ×2 (00:12→05:45)
[2020-07-20] MEDS: METOCLOPRAMIDE 5 MG/ML 2 ML VIAL IVP SCH ×3 (00:14→11:55)
[2020-07-20] MEDS: 0.9% NACL WITH KCL 20 MEQ/L 1,000 ML IV SCH ×2 (00:14→05:46)
[2020-07-20 03:11] VITALS: PULSE 78
[2020-07-20] MEDS: LACTATED RINGERS 1,000 ML IV SCH (04:37)
[2020-07-20] MEDS: PANTOPRAZOLE 40 MG/10 ML VIAL IV SCH (07:33)
[2020-07-20] MEDS: ENOXAPARIN 40 MG/0.4 ML SYRINGE SQ SCH (07:33)
[2020-07-20 07:41] VITALS: BP 149/85; RESP 18; TEMP 98.3
[2020-07-20] MEDS: ALBUTEROL NEBULIZED 2.5 MG/3 ML INHALATION SCH ×2 (08:57→11:36)
[2020-07-20 10:30] LABS: Basophils # (A) 0.03 X 10*3/uL (0.00-0.10); Basophils % (A) 0.4 %; Eosinophils # (A) 0.02 X 10*3/uL (0.04-0.35); Eosinophils % (A) 0.3 %; HCT 38.7 % (37.2-46.3); HGB 12.1 g/dL (12.0-15.0); Lymphocytes # (A) 0.82 X 10*3/uL (0.90-5.00); Lymphocytes % (A) 11.5 %; MCH 29.2 pg (27.0-32.0); MCHC 31.3 g/dL (32.0-37.0); MCV 93.3 fL (80.0-97.0); Mean Platelet Volume 11.4 fL (9.5-12.2); Monocytes % (A) 4.2 %; Neutrophils # (A) 5.92 X 10*3/uL (1.80-7.70); Neutrophils % (A) 83.3 %; Platelet Count 252 X 10*3/uL (140-440); RBC 4.15 X 10*6/uL (4.10-5.20); WBC 7.11 X 10*3/uL (4.50-10.00)
--- NOTE | 2020-07-20 12:55 | P.DS ---
Providers Date of admission: 07/18/20 08:23 Expected date of discharge: 07/20/20 Attending physician: Lui Mane Consults: 07/18/20 11:45 Consult Physician Routine Consulting Provider: Debby Beatty Consult Reason/Comments: Medical management Do you want consulting provider notified?: Yes Primary care physician: Stated None Hospital Course: Discharge diagnosis 1. Morbid obesity and dysphagia status post sleeve gastrectomy and removal of lap band system 2. Obstruction noted on upper GI. Patient could have inflammation due severe vomiting after surgery Hospital course This is a 55-year-old female with chronic GERD and dysphagia related to her lap band. Patient is status post sleeve gastrectomy and removal of lap band system for morbid obesity and dysphagia. Patient did have severe vomiting after surgery. This has now resolved. There is also obstruction noted on her upper GI. She was treated with dexamethasone. And she was kept nothing by mouth exc ept for ice chips and popsicles for a day. Patient was started on bariatric clear liquids today. She is tolerating diet. She has no difficulty swallowing. She is passing gas. She is afebrile. She has been up and ambulating. Her pain is controlled. She is stable for discharge. Physician Linoleum Printer note has been reviewed by physician. Signing provider agrees with the documented findings, assessment, and plan of care. Patient Condition at Discharge: Stable Plan - Discharge Summary Discharge Rx Participant: Yes New Discharge Prescriptions: New bisacodyL [Dulcolax] 5 mg PO DAILY PRN #10 tablet.dr QUINTERON Reason: Constipation Simethicone 40 mg/0.6 ml Drops [Mylicon Drops] 40 mg PO PCHS PRN #30 ml PRN Reason: Gas oxyCODONE HCL [OxyIR] 5 mg PO Q6H PRN 2 Days #5 tab PRN Reason: Pain Omeprazole [PriLOSEC] 40 mg PO DAILY #30 capsule. Ondansetron Odt [Zofran Odt] 4 mg PO Q8HR PRN #9 tab PRN Reason: Nausea Continue methocarbamoL [Robaxin] 500 mg PO HS Calcipotriene/Betamethasone [Taclonex Ointment] 1 applic TOPICAL DAILY PRN PRN Reason: psoriasis Acetaminophen/Diphenhydramine [Tylenol PM 500-25mg] 1 tab PO HS buPROPion [Wellbutrin] 100 mg PO HS Discontinued Ibuprofen 200 mg PO Q8H PRN PRN Reason: Pain Multivitamin [Multivitamins Adult Gummies] 1 tab PO HS Discharge Medication List Acetaminophen/Diphenhydramine [Tylenol PM 500-25mg] 1 tab PO HS 04/11/20 [History] Calcipotriene/Betamethasone [Taclonex Ointment] 1 applic TOPICAL DAILY PRN 04/11/20 [History] buPROPion [Wellbutrin] 100 mg PO HS 04/11/20 [History] methocarbamoL [Robaxin] 500 mg PO HS 04/11/20 [History] Omeprazole [PriLOSEC] 40 mg PO DAILY #30 capsule. 07/20/20 [Rx] Ondansetron Odt [Zofran Odt] 4 mg PO Q8HR PRN #9 tab 07/20/20 [Rx] Simethicone 40 mg/0.6 ml Drops [Mylicon Drops] 40 mg PO PCHS PRN #30 ml 07/20/20 [Rx] bisacodyL [Dulcolax] 5 mg PO DAILY PRN #10 tablet. 07/20/20 [Rx] oxyCODONE HCL [OxyIR] 5 mg PO Q6H PRN 2 Days #5 tab 07/20/20 [Rx] [place] [facility] [facility] [facility] Week Activity/Diet/Wound Care/Special Instructions: No driving while taking OxyIR No lifting over 10 pounds You may shower. No soaking or tub baths for 2 weeks Very light activity until you are reevaluated at your follow up appointment with your surgeon Can use Tylenol over the counter as needed every 4 to 6 hours for pain Cut or crush all pills to the size smaller than a TicTac Discharge Disposition: HOME SELF-CARE
--- NOTE | 2020-07-20 15:31 | P.PN ---
Subjective Progress Note Date: 07/20/20 - Reason for Consult Preoperative medical management. - History of Present Illness Patient is a pleasant 55-year-old female admitted for elective sleeve ga strectomy and underwent surgery patient is still drowsy coming out of anesthesia having the abdominal pain soreness in the surgical site area and they're quite a bit nauseous. Patient denied any fever chills patient denied any dysuria. Patient doesn't have any Pierre catheter at this time. 07/19/2020 Patient is seen and evaluated in follow-up currently underwent sleeve gastrectomy and is lethargic although arousable. Patient denies any gas or bowel movements at this time but states she is burping. Incentive spirometer at the bedside and instructed the patient to continue using at least 10 times every hour while awake. Patient is to continue with nothing by mouth except ice chips and popsicles per surgery. Labs within normal limits. Magnesium slightly low at 1.7 and being replaced. Will repeat labs. Patient also instructed to increase activity as tolerated. Patient had upper GI series done today showing obstruction present and surgery is aware. 07/20/2020 Patient is seen and evaluated in follow-up this morning and is much more awake and alert and feeling much better. She is passing gas although no reports of bowel movements as of yet. Patient has been up and walking and continues to use the incentive spirometer as directed. She is maintained on clear liquids and to lerating with no reports of nausea or vomiting noted. Repeat labs within normal limits. Will continue to follow along with surgery during hospitalization. She states she is being discharged today. Review of systems: Constitutional: Reports fatigue, no reports of fever, or chills Cardiovascular: No reports of chest pain or palpitations Respiratory: No reports of shortness of breath or cough GI: No reports of nausea,no reports of vomiting, or diarrhea, patient reports passing gas : No reports of dysuria or retention Neurovascular: No reports of weakness or numbness All medications have been reviewed Objective - Vital Signs Vital signs: Vital Signs Temp 98.3 F 07/20/20 07:39 Pulse 78 07/20/20 07:39 Resp 18 07/20/20 07:39 BP 149/85 07/20/20 07:39 Pulse Ox 93 L 07/20/20 07:39 Intake & Output 07/19/20 07/20/20 07/20/20 18:59 06:59 18:59 Intake Total 1800 Balance 1800 Weight 111.1 kg Intake: Intake, IV Titration 1800 Amount 0.9% NaCl with KCl 20 Meq 1800 /l 1,000 ml @ 150 mls/hr IV .Q6H40M [facility] Rx#: [id number] Other: Voiding Method Toilet Toilet # Voids 3 4 - Exam GENERAL: The patient is awake sitting up in bed, alert and oriented x3, not in any acute distress. Obese HEENT: Pupils are round and equally reacting to light. EOMI. No scleral icterus. No conjunctival pallor. Normocephalic, atraumatic. No pharyngeal erythema. No thyromegaly. CARDIOVASCULAR: S1 and S2 present. No murmurs, rubs, or gallops. PULMONARY: Chest is clear to auscultation, no wheezing or crackles. ABDOMEN: Soft, nontender, nondistended, no bowel sounds noted. No palpable organomegaly. MUSCULOSKELETAL: No joint swelling or deformity. EXTREMITIES: No cyanosis, clubbing, or pedal edema. NEUROLOGICAL: Gross neurological examination did not reveal any focal deficits. SKIN: No rashes. - Labs CBC & Chem 7: 07/20/20 06:51 07/19/20 06:10 Labs: Abnormal Lab Results - Last 24 Hours (Table) 07/19/20 07/19/20 Range/Units 06:10 06:10 MCHC 31.1 L (32.0-37.0) g/dL BUN 8.0 L (9.0-27.0) mg/dL Calcium 8.2 L (8.7-10.3) mg/dL Assessment and Plan Assessment: -Morbid obesity: Status post sleeve gastrectomy -Depression continue with the bupropion whenever she can tolerate by mouth medications -Gastroesophageal reflux disease patient was started on IV Protonix hold off on nonsteroidal anti-inflammatory medications -DVT prophylaxis as per primary service, on subcutaneous Lovenox -GI prophylaxis: Protonix -Full code Plan: Continue with current medications. Instructed to continue using incentive spirometer at least 10 times every hour. Patient is currently on bariatric clear liquids and tolerating with no reports of nausea or vomiting. Repeat labs within normal limits. Patient is currently up and walking and reports to passing gas although no reports of bowel movements as of yet. Patient to be discharged today. Patient instructed to resume home medications once cleared by surgery and to adhere to diet restrictions in regards to bariatric surgery.
[2020-07-20 21:29] LABS: African American GFR (CKD) 125.4 (60.0-200.0); Anion Gap 7.6 mmol/L (4.00-12.00); Calcium 8.4 mg/dL (8.7-10.3); Carbon Dioxide 24.4 mmol/L (21.6-31.8); Magnesium 1.9 mg/dL (1.5-2.4); Non-African American GFR(CKD) 108.2 (60.0-200.0); Potassium 4.4 mmol/L (3.5-5.5)
== END 2020-07-20 14:32 | disposition home or self-care (01) | DRG 621 ==
LOC: 2ORMAIN 08:23 → 4SSUR 13:30
PROVIDERS: ADMIT Surgery; ATTEND Surgery
PROC: 0DP64CZ Removal of Extraluminal Device from Stomach, Percutaneous Endoscopic Approach (ICD-10-PCS; principal; 2020-07-18 09:40)
PROC: 0DB64Z3 Excision of Stomach, Percutaneous Endoscopic Approach, Vertical (ICD-10-PCS; 2020-07-18 09:40)
DX: E66.01 Morbid (severe) obesity due to excess calories (principal); Z68.41 Body mass index [BMI] 40.0-44.9, adult; R13.10 Dysphagia, unspecified; K21.9 Gastro-esophageal reflux disease without esophagitis; M19.90 Unspecified osteoarthritis, unspecified site; F32.9 Major depressive disorder, single episode, unspecified; R00.0 Tachycardia, unspecified; Z79.899 Other long term (current) drug therapy; Z90.710 Acquired absence of both cervix and uterus; Z90.49 Acquired absence of other specified parts of digestive tract; Z98.890 Other specified postprocedural states; Z98.84 Bariatric surgery status; Z96.651 Presence of right artificial knee joint; Z87.891 Personal history of nicotine dependence; Z88.8 Allergy status to other drugs, medicaments and biological substances; Z80.8 Family history of malignant neoplasm of other organs or systems; Z82.49 Family history of ischemic heart disease and other diseases of the circulatory system
CPT/HCPCS: 74240; 80048; 80051; 82310; 82565; 83735; 84100; 84520; 85025; 88307; 94640

== ENCOUNTER → 2020-07-25 | Outpatient (CLI) | payer BC ==
--- NOTE | 2020-07-25 14:41 | P.HPBAR ---
Bariatric H&P - History & Physicial H&P Date: 07/25/20 History & Physicial: Visit/CC: follow up 1 week Patient initial contact: Initial weight: Initial weight in pounds: Height: 5 ft 4 in Initial BMI: Last weight: Current weight: 107.501 kg Current weight in pounds: 237.00 Current BMI: 40.6 [place] body weight (based on NIH guidelines): 54.431 kg Excess body weight loss: The patient is a 55 year-old F who presents for Bariatric Assessment. Patient presents today for sleeve gastric fall. She is postoperative week 1 from removal of LAP-BAND and conversion sleeve gastrectomy. Past Medical History Past Medical History: GERD/Reflux, Osteoarthritis (OA) Additional Past Medical History / Comment(s): arthritis History of Any Multi-Drug Resistant Organisms: None Reported Past Surgical History: Bariatric Surgery, Section, Cholecystectomy, Hysterectomy, Orthopedic Surgery, Tonsillectomy Additional Past Surgical History / Comment(s): lap band; RIGHT TOTAL KNEE, LEFT TOTAL KNEE Past Anesthesia/Blood Transfusion Reactions: Previous Problems w/ Anesthesia, Motion Sickness Additional Past Anesthesia/Blood Transfusion Reaction / Comm: " hard time waking up post anesthesia" TAKES LONGER WAKING UP" Past Psychological History: Depression Smoking Status: Former smoker Past Alcohol Use History: Rare Additional Past Alcohol Use History / Comment(s): STARTED SMOKING AT AGE 9 QUIT SMOKING IN 2013 SMOKED 1/4 PPD Past Drug Use History: None Reported - Past Family History Father Family Medical History: Cancer, Deep Vein Thrombosis (DVT) Additional Family Medical History / Comment(s): TONGUE CANCER Surgical - Exam Vital Signs Temp Pulse Resp BP 98.2 F 98 18 115/83 07/25/20 13:54 07/25/20 13:54 07/25/20 13:54 07/25/20 13:54 - General well developed, well nourished - Abdomen Abdomen: soft, non tender Bariatric Assessment & Plan Plan: Status post removal LAP-BAND and conversive gastric repair patient is doing quite well. She'll follow-up 4 weeks. Bariatric Checklist Checklist: Plan: Checklist: EGD: 1. Hiatal hernia: 2. H. Pylori: HgbA1c: Vitamin D: Smoking: Primary care physician referral: Dr. Pardo Psychiatry clearance: Cardiology clearance: Sleep study: Diet journal: VTE risk score: VTE risk level: Rehab needs at discharge:
== END ==
CPT/HCPCS: 97803; 99211

== ENCOUNTER → 2020-08-08 | Outpatient (CLI) | payer BC ==
[2020-08-08 13:44] VITALS: BP 110/71; PULSE 80; RESP 18; TEMP 98.4; BMI 39.9
[2020-08-08 15:09] LABS: HCT 42.7 % (34.0-46.0); HGB 13.9 gm/dL (11.4-16.0); MCH 29.2 pg (25.0-35.0); MCHC 32.6 g/dL (31.0-37.0); MCV 89.5 fL (80.0-100.0); Mean Platelet Volume 7.4; Platelet Count 317 k/uL (150-450); RBC 4.77 m/uL (3.80-5.40); RDW 13.3 % (11.5-15.5); WBC 5.3 k/uL (3.8-10.6)
[2020-08-09 01:29] LABS: % Iron Saturation 20.39 (12.00-45.00); African American GFR (CKD) 95.5 (60.0-200.0); Albumin 4.3 g/dL (3.80-4.90); Albumin/Globulin Ratio 2.15 (1.60-3.17); BUN/Creat Ratio 18.75 Ratio (12.00-20.00); Calcium 9.5 mg/dL (8.7-10.3); Magnesium 1.8 mg/dL (1.5-2.4); Non-African American GFR(CKD) 82.4 (60.0-200.0); Potassium 4.1 mmol/L (3.5-5.5); Total Bilirubin 0.3 mg/dL (0.2-1.2); Total Protein 6.3 g/dL (6.2-8.2)
[2020-08-09 01:39] LABS: Ferritin 60.9 ng/mL (10.0-291.0)
[2020-08-09 01:51] LABS: Folate, Serum 18.6 ng/mL
[2020-08-09 13:57] LABS: Zinc, Serum 60 ug/dL (60-130)
[2020-08-10 07:34] LABS: Vitamin A 40 ug/dL (38-106)
[2020-08-11 00:18] LABS: Selenium 107 mcg/L (63-160)
[2020-08-11 10:46] LABS: Vit B1(Thiamine) 57 ug/L (38-122)
--- NOTE | 2020-08-15 15:58 | P.HPBAR ---
Bariatric H&P - History & Physicial H&P Date: 08/08/20 History & Physicial: Visit/CC: follow up Patient initial contact: Initial weight: Initial weight in pounds: Height: 5 ft 4 in Initial BMI: Last weight: Current weight: 105.687 kg Current weight in pounds: 233.00 Current BMI: 39.9 [place] body weight (based on NIH guidelines): 54.431 kg Excess body weight loss: The patient is a 55 year-old F who presents for Bariatric Assessment. Patient presents today for sleeve gastrectomy.. She's had some complaints of GERD. Past Medical History Past Medical History: GERD/Reflux, Osteoarthritis (OA) Additional Past Medical History / Comment(s): arthritis History of Any Multi-Drug Resistant Organisms: None Reported Past Surgical History: Bariatric Surgery, Section, Cholecystectomy, Hysterectomy, Orthopedic Surgery, Tonsillectomy Additional Past Surgical History / Comment(s): lap band; RIGHT TOTAL KNEE, LEFT TOTAL KNEE Past Anesthesia/Blood Transfusion Reactions: Previous Problems w/ Anesthesia, Motion Sickness Additional Past Anesthesia/Blood Transfusion Reaction / Comm: " hard time waking up post anesthesia" TAKES LONGER WAKING UP" Past Psychological History: Depression Smoking Status: Former smoker Past Alcohol Use History: Rare Additional Past Alcohol Use History / Comment(s): STARTED SMOKING AT AGE 9 QUIT SMOKING IN 2013 SMOKED 1/4 PPD Past Drug Use History: None Reported - Past Family History Father Family Medical History: Cancer, Deep Vein Thrombosis (DVT) Additional Family Medical History / Comment(s): TONGUE CANCER Surgical - Exam Vital Signs Temp Pulse Resp BP 98.4 F 80 18 110/71 08/08/20 13:33 08/08/20 13:33 08/08/20 13:33 08/08/20 13:33 - General well developed, well nourished, no distress - Eyes PERRL - ENT normal pinna - Neck no masses - Respiratory normal expansion - Cardiovascular Rhythm: regular - Abdomen Abdomen: soft, non tender Results - Labs 08/08/20 14:43 08/08/20 14:43 Bariatric Assessment & Plan Plan: Status post sleeve yesterday. His GERD is minimal and will be observed. She'll follow-up in 4 weeks. Bariatric Checklist Checklist: Plan: Checklist: EGD: 1. Hiatal hernia: 2. H. Pylori: HgbA1c: Vitamin D: Smoking: Primary care physician referral: Dr. Pardo Psychiatry clearance: Cardiology clearance: Sleep study: Diet journal: VTE risk score: VTE risk level: Rehab needs at discharge:
== END ==
LOC: BARWHC3 12:51
PROVIDERS: ATTEND Surgery
DX: Z98.84 Bariatric surgery status (principal); Z46.51 Encounter for fitting and adjustment of gastric lap band; K21.9 Gastro-esophageal reflux disease without esophagitis; Z98.890 Other specified postprocedural states; M19.90 Unspecified osteoarthritis, unspecified site; Z87.891 Personal history of nicotine dependence; F32.9 Major depressive disorder, single episode, unspecified
CPT/HCPCS: 80053; 82306; 82607; 82728; 82746; 83540; 83550; 83735; 84255; 84425; 84443; 84590; 84630; 85027; 97803; 99211

== ENCOUNTER → 2020-09-26 | Outpatient (CLI) | payer BC ==
[2020-09-26 13:28] VITALS: BP 107/75; PULSE 73; RESP 18; TEMP 97.9; BMI 37.0
[2020-09-26 14:24] LABS: HCT 41.1 % (34.0-46.0); HGB 14.1 gm/dL (11.4-16.0); MCH 30.9 pg (25.0-35.0); MCHC 34.3 g/dL (31.0-37.0); MCV 90.2 fL (80.0-100.0); Mean Platelet Volume 7.4; Platelet Count 245 k/uL (150-450); RBC 4.55 m/uL (3.80-5.40); RDW 13.4 % (11.5-15.5); WBC 4.8 k/uL (3.8-10.6)
--- NOTE | 2020-09-26 14:51 | P.HPBAR ---
Bariatric H&P - History & Physicial H&P Date: 09/26/20 History & Physicial: Visit/CC: follow up Patient initial contact: Initial weight: Initial weight in pounds: Height: 5 ft 4 in Initial BMI: Last weight: Current weight: 97.976 kg Current weight in pounds: 216.00 Current BMI: 37.0 [place] body weight (based on NIH guidelines): 54.431 kg Excess body weight loss: The patient is a 55 year-old F who presents for Bariatric Assessment. Patient presents today for sleeve gastrectomy follow-up. She's had some mild GERD. She is an excellent weight loss. Past Medical History Past Medical History: GERD/Reflux, Osteoarthritis (OA) Additional Past Medical History / Comment(s): arthritis History of Any Multi-Drug Resistant Organisms: None Reported Past Surgical History: Bariatric Surgery, Section, Cholecystectomy, Hysterectomy, Orthopedic Surgery, Tonsillectomy Additional Past Surgical History / Comment(s): lap band; RIGHT TOTAL KNEE, LEFT TOTAL KNEE Past Anesthesia/Blood Transfusion Reactions: Previous Problems w/ Anesthesia, Motion Sickness Additional Past Anesthesia/Blood Transfusion Reaction / Comm: " hard time waking up post anesthesia" TAKES LONGER WAKING UP" Past Psychological History: Depression Smoking Status: Former smoker Past Alcohol Use History: Rare Additional Past Alcohol Use History / Comment(s): STARTED SMOKING AT AGE 9 QUIT SMOKING IN 2013 SMOKED 1/4 PPD Past Drug Use History: None Reported - Past Family History Father Family Medical History: Cancer, Deep Vein Thrombosis (DVT) Additional Family Medical History / Comment(s): TONGUE CANCER Surgical - Exam Vital Signs Temp Pulse Resp BP 97.9 F 73 18 107/75 09/26/20 13:25 09/26/20 13:25 09/26/20 13:25 09/26/20 13:25 - General well developed, well nourished, no distress - Eyes PERRL - ENT normal pinna - Neck no masses - Respiratory normal expansion - Cardiovascular Rhythm: regular - Abdomen Abdomen: soft, non tender Results - Labs 09/26/20 13:48 Bariatric Assessment & Plan Plan: A significant history. Patient has developed GERD which she'll be observed.. She'll follow-up in 4 weeks. Bariatric Checklist Checklist: Plan: Checklist: EGD: 1. Hiatal hernia: 2. H. Pylori: HgbA1c: Vitamin D: Smoking: Primary care physician referral: Dr. Pardo Psychiatry clearance: Cardiology clearance: Sleep study: Diet journal: VTE risk score: VTE risk level: Rehab needs at discharge:
[2020-09-26 21:12] LABS: Ferritin 71.6 ng/mL (10.0-291.0)
[2020-09-26 21:29] LABS: % Iron Saturation 27.64 (12.00-45.00); African American GFR (CKD) 95.5 (60.0-200.0); Albumin 4.6 g/dL (3.80-4.90); Albumin/Globulin Ratio 1.84 (1.60-3.17); Anion Gap 8.3 mmol/L (4.00-12.00); Calcium 9.5 mg/dL (8.7-10.3); Carbon Dioxide 26.7 mmol/L (21.6-31.8); Folate, Serum 21.2 ng/mL; Globulin 2.5 g/dL (1.6-3.3); Magnesium 1.9 mg/dL (1.5-2.4); Non-African American GFR(CKD) 82.4 (60.0-200.0); Potassium 4.3 mmol/L (3.5-5.5); Total Bilirubin 0.5 mg/dL (0.3-1.2); Total Protein 7.1 g/dL (6.2-8.2)
[2020-09-27 12:24] LABS: Zinc, Serum 68 ug/dL (60-130)
[2020-09-28 06:46] LABS: Vit B1(Thiamine) 56 ug/L (38-122)
[2020-09-28 08:38] LABS: Vitamin A 53 ug/dL (38-106)
== END ==
LOC: BARWHC3 12:08
PROVIDERS: ATTEND Surgery
DX: Z09 Encounter for follow-up examination after completed treatment for conditions other than malignant neoplasm (principal); K21.9 Gastro-esophageal reflux disease without esophagitis; M19.90 Unspecified osteoarthritis, unspecified site; Z98.84 Bariatric surgery status; F32.9 Major depressive disorder, single episode, unspecified; Z87.891 Personal history of nicotine dependence
CPT/HCPCS: 80053; 82306; 82607; 82728; 82746; 83540; 83550; 83735; 84255; 84425; 84443; 84590; 84630; 85027; 99211

== ENCOUNTER → 2020-10-31 | Outpatient (CLI) | payer BC ==
[2020-10-31 13:10] VITALS: BP 112/74; PULSE 65; TEMP 97.8; BMI 36.2
--- NOTE | 2020-11-08 12:48 | P.HPBAR ---
Bariatric H&P - History & Physicial H&P Date: 10/31/20 History & Physicial: Visit/CC: three month follow up Patient initial contact: Initial weight: Initial weight in pounds: Height: 5 ft 4 in Initial BMI: Last weight: Current weight: 95.708 kg Current weight in pounds: 211.00 Current BMI: 36.2 [place] body weight (based on NIH guidelines): 54.431 kg Excess body weight loss: The patient is a 55 year-old F who presents for Bariatric Assessment. Patient presents today for sleeve gastric her fall. She's had excellent less. She's had some mild GERD. Past Medical History Past Medical History: GERD/Reflux, Osteoarthritis (OA) Additional Past Medical History / Comment(s): arthritis History of Any Multi-Drug Resistant Organisms: None Reported Past Surgical History: Bariatric Surgery, Section, Cholecystectomy, Hysterectomy, Orthopedic Surgery, Tonsillectomy Additional Past Surgical History / Comment(s): lap band; RIGHT TOTAL KNEE, LEFT TOTAL KNEE Past Anesthesia/Blood Transfusion Reactions: Previous Problems w/ Anesthesia, Motion Sickness Additional Past Anesthesia/Blood Transfusion Reaction / Comm: " hard time waking up post anesthesia" TAKES LONGER WAKING UP" Past Psychological History: Depression Smoking Status: Former smoker Past Alcohol Use History: Rare Additional Past Alcohol Use History / Comment(s): STARTED SMOKING AT AGE 9 QUIT SMOKING IN 2013 SMOKED 1/4 PPD Past Drug Use History: None Reported - Past Family History Father Family Medical History: Cancer, Deep Vein Thrombosis (DVT) Additional Family Medical History / Comment(s): TONGUE CANCER Surgical - Exam Vital Signs Temp Pulse BP 97.8 F 65 112/74 10/31/20 13:07 10/31/20 13:07 10/31/20 13:07 - General well developed, well nourished, no distress - Eyes PERRL - ENT normal pinna - Neck no masses - Respiratory normal expansion - Cardiovascular Rhythm: regular - Abdomen Abdomen: soft, non tender Bariatric Assessment & Plan Plan: Status post sleeve gastrectomy. Patient's GERD is minimal will be observed. She'll follow-up in 4 weeks. Bariatric Checklist Checklist: Plan: Checklist: EGD: 1. Hiatal hernia: 2. H. Pylori: HgbA1c: Vitamin D: Smoking: Primary care physician referral: Dr. Pardo Psychiatry clearance: Cardiology clearance: Sleep study: Diet journal: VTE risk score: VTE risk level: Rehab needs at discharge:
== END ==
LOC: BARWHC3 12:24
PROVIDERS: ATTEND Surgery
DX: Z09 Encounter for follow-up examination after completed treatment for conditions other than malignant neoplasm (principal); K21.9 Gastro-esophageal reflux disease without esophagitis; M19.90 Unspecified osteoarthritis, unspecified site; F32.9 Major depressive disorder, single episode, unspecified; Z98.84 Bariatric surgery status; Z87.891 Personal history of nicotine dependence; Z88.8 Allergy status to other drugs, medicaments and biological substances
CPT/HCPCS: 99211

== ENCOUNTER → 2020-12-12 | Outpatient (CLI) | payer BC ==
[2020-12-12 13:14] VITALS: BP 107/67; PULSE 69; RESP 18; TEMP 98.4; BMI 35.3
--- NOTE | 2020-12-12 14:06 | P.HPBAR ---
Bariatric H&P - History & Physicial H&P Date: 12/12/20 History & Physicial: Visit/CC: follow up Patient initial contact: Initial weight: Initial weight in pounds: Height: 5 ft 4 in Initial BMI: Last weight: Current weight: 93.44 kg Current weight in pounds: 206.00 Current BMI: 35.3 [place] body weight (based on NIH guidelines): 54.431 kg Excess body weight loss: The patient is a 55 year-old F who presents for Bariatric Assessment. She presents today for sleeve gastrectomy fall. She lost 5 pounds. She's had some minimal GERD. Past Medical History Past Medical History: GERD/Reflux, Osteoarthritis (OA) Additional Past Medical History / Comment(s): arthritis History of Any Multi-Drug Resistant Organisms: None Reported Past Surgical History: Bariatric Surgery, Section, Cholecystectomy, Hysterectomy, Orthopedic Surgery, Tonsillectomy Additional Past Surgical History / Comment(s): lap band; RIGHT TOTAL KNEE, LEFT TOTAL KNEE; lap band removal, Sleeve conversion 07/18/2020. Past Anesthesia/Blood Transfusion Reactions: Previous Problems w/ Anesthesia, Motion Sickness Additional Past Anesthesia/Blood Transfusion Reaction / Comm: " hard time waking up post anesthesia" TAKES LONGER WAKING UP" Past Psychological History: Depression Smoking Status: Former smoker Past Alcohol Use History: Rare Additional Past Alcohol Use History / Comment(s): STARTED SMOKING AT AGE 9 QUIT SMOKING IN 2013 SMOKED 1/4 PPD Past Drug Use History: None Reported - Past Family History Father Family Medical History: Cancer, Deep Vein Thrombosis (DVT) Additional Family Medical History / Comment(s): TONGUE CANCER Surgical - Exam Vital Signs Temp Pulse Resp BP 98.4 F 69 18 107/67 12/12/20 13:04 12/12/20 13:04 12/12/20 13:04 12/12/20 13:04 - General well developed, well nourished, no distress - Eyes PERRL - ENT normal pinna - Neck no masses - Respiratory normal expansion - Cardiovascular Rhythm: regular - Abdomen Abdomen: soft, non tender Bariatric Assessment & Plan Plan: Status post sleeve gastric. Patient had excellent weight loss. Her GERD is minimal will be observed. Bariatric Checklist Checklist: Plan: Checklist: EGD: 1. Hiatal hernia: 2. H. Pylori: HgbA1c: Vitamin D: Smoking: Primary care physician referral: Dr. Pardo Psychiatry clearance: Cardiology clearance: Sleep study: Diet journal: VTE risk score: VTE risk level: Rehab needs at discharge:
== END ==
LOC: BARWHC3 12:21
PROVIDERS: ATTEND Surgery
DX: Z09 Encounter for follow-up examination after completed treatment for conditions other than malignant neoplasm (principal); K21.9 Gastro-esophageal reflux disease without esophagitis; M19.90 Unspecified osteoarthritis, unspecified site; Z98.84 Bariatric surgery status; F32.9 Major depressive disorder, single episode, unspecified; Z87.891 Personal history of nicotine dependence; Z88.8 Allergy status to other drugs, medicaments and biological substances
CPT/HCPCS: 97803; 99211

== ENCOUNTER → 2021-01-23 | Outpatient (CLI) | payer BC ==
[2021-01-23 13:11] VITALS: BP 106/74; PULSE 70; RESP 16; TEMP 98.5; BMI 34.3
[2021-01-23 13:26] LABS: HCT 39.5 % (34.0-46.0); HGB 13.5 gm/dL (11.4-16.0); MCH 32.3 pg (25.0-35.0); MCHC 34.1 g/dL (31.0-37.0); MCV 94.6 fL (80.0-100.0); Mean Platelet Volume 8.6; Platelet Count 221 k/uL (150-450); RBC 4.17 m/uL (3.80-5.40); RDW 13.3 % (11.5-15.5); WBC 4.8 k/uL (3.8-10.6)
[2021-01-23 21:34] LABS: % Iron Saturation 10.71 (12.00-45.00); ALT 26 U/L (8-44); AST 26 U/L (13-35); African American GFR (CKD) 95.5 (60.0-200.0); Albumin/Globulin Ratio 2.25 (1.60-3.17); Alkaline Phosphatase 89 U/L (41-126); BUN/Creat Ratio 13.75 Ratio (12.00-20.00); Calcium 9.2 mg/dL (8.7-10.3); Carbon Dioxide 23.9 mmol/L (21.6-31.8); Chloride 107 mmol/L (96-109); Glucose 141 mg/dL (70-110); Iron 33 ug/dL (50-170); Magnesium 1.7 mg/dL (1.5-2.4); Non-African American GFR(CKD) 82.4 (60.0-200.0); Potassium 4.3 mmol/L (3.5-5.5); Sodium 141 mmol/L (135-145); Total Bilirubin 0.3 mg/dL (0.3-1.2); Total Iron Binding Capacity 308 ug/dL (228-460); Total Protein 6.5 g/dL (6.2-8.2)
[2021-01-24 01:18] LABS: Ferritin 107.2 ng/mL (10.0-291.0)
[2021-01-24 01:42] LABS: Folate, Serum >24.0 ng/mL
[2021-01-24 15:06] LABS: Zinc, Serum 74 ug/dL (60-130)
[2021-01-25 07:45] LABS: Vitamin A 43 ug/dL (38-106)
[2021-01-25 13:37] LABS: Vit B1(Thiamine) 48 ug/L (38-122)
[2021-02-01 09:58] LABS: Selenium 102 mcg/L (63-160)
--- NOTE | 2021-02-21 10:28 | P.HPBAR ---
Bariatric H&P - History & Physicial H&P Date: 01/23/21 History & Physicial: Visit/CC: sleeve f/u Patient initial contact: Initial weight: 116.715 kg Initial weight in pounds: 257.31 Height: 5 ft 4 in Initial BMI: 44.1 Last weight: Current weight: 90.718 kg Current weight in pounds: 200.00 Current BMI: 34.3 [place] body weight (based on NIH guidelines): 54.431 kg Excess body weight loss: 41.7% The patient is a 55 year-old F who presents for Bariatric Assessment. Patient presents today for sleeve gastric and follow-up. She's had some minimal GERD. She denies a significant dysphagia. She has had excellent weight loss. Past Medical History Past Medical History: GERD/Reflux, Osteoarthritis (OA) Additional Past Medical History / Comment(s): arthritis History of Any Multi-Drug Resistant Organisms: None Reported Past Surgical History: Bariatric Surgery, Section, Cholecystectomy, Hysterectomy, Orthopedic Surgery, Tonsillectomy Additional Past Surgical History / Comment(s): lap band; RIGHT TOTAL KNEE, LEFT TOTAL KNEE; lap band removal, Sleeve conversion 07/18/2020. Past Anesthesia/Blood Transfusion Reactions: Previous Problems w/ Anesthesia, Motion Sickness Additional Past Anesthesia/Blood Transfusion Reaction / Comm: " hard time waking up post anesthesia" TAKES LONGER WAKING UP" Past Psychological History: Depression Smoking Status: Former smoker Past Alcohol Use History: Rare Additional Past Alcohol Use History / Comment(s): STARTED SMOKING AT AGE 9 QUIT SMOKING IN 2013 SMOKED 1/4 PPD Past Drug Use History: None Reported - Past Family History Father Family Medical History: Cancer, Deep Vein Thrombosis (DVT) Additional Family Medical History / Comment(s): TONGUE CANCER Surgical - Exam Vital Signs Temp Pulse Resp BP 98.5 F 70 16 106/74 01/23/21 13:08 01/23/21 13:08 01/23/21 13:08 01/23/21 13:08 - General well developed, well nourished, no distress - Eyes PERRL - ENT normal pinna - Neck no masses - Respiratory normal expansion - Cardiovascular Rhythm: regular - Abdomen Abdomen: soft, non tender Results - Labs 01/23/21 12:37 01/23/21 12:37 Bariatric Assessment & Plan Plan: Status post sleeve yesterday. Patient's crit is minimal TEMPERATURE follow-up in 4 weeks. Bariatric Checklist Checklist: Plan: Checklist: EGD: 1. Hiatal hernia: 2. H. Pylori: HgbA1c: Vitamin D: Smoking: Primary care physician referral: Dr. Pardo Psychiatry clearance: Cardiology clearance: Sleep study: Diet journal: VTE risk score: VTE risk level: Rehab needs at discharge:
== END ==
LOC: BARWHC3 12:20
PROVIDERS: ATTEND Surgery
DX: Z09 Encounter for follow-up examination after completed treatment for conditions other than malignant neoplasm (principal); K21.9 Gastro-esophageal reflux disease without esophagitis; M19.90 Unspecified osteoarthritis, unspecified site; F32.9 Major depressive disorder, single episode, unspecified; Z98.84 Bariatric surgery status; Z87.891 Personal history of nicotine dependence; Z88.8 Allergy status to other drugs, medicaments and biological substances
CPT/HCPCS: 36415; 80053; 82306; 82607; 82728; 82746; 83540; 83550; 83735; 84255; 84425; 84443; 84590; 84630; 85027; 99211

== ENCOUNTER → 2021-03-20 | Outpatient (CLI) | payer BC ==
[2021-03-20 13:21] VITALS: BP 118/78; PULSE 71; RESP 18; TEMP 98.5; BMI 34.0
--- NOTE | 2021-04-06 19:29 | P.HPBAR ---
Bariatric H&P - History & Physicial H&P Date: 03/20/21 History & Physicial: Visit/CC: follow up Patient initial contact: Initial weight: 116.715 kg Initial weight in pounds: 257.31 Height: 5 ft 4 in Initial BMI: 44.1 Last weight: Current weight: 89.811 kg Current weight in pounds: 198.00 Current BMI: 34.0 [place] body weight (based on NIH guidelines): 54.431 kg Excess body weight loss: 43.1% The patient is a 55 year-old F who presents for Bariatric Assessment. Patient has complaints of GERD. She denies any dysphagia. Past Medical History Past Medical History: GERD/Reflux, Osteoarthritis (OA) Additional Past Medical History / Comment(s): arthritis History of Any Multi-Drug Resistant Organisms: None Reported Past Surgical History: Bariatric Surgery, Section, Cholecystectomy, Hysterectomy, Orthopedic Surgery, Tonsillectomy Additional Past Surgical History / Comment(s): lap band; RIGHT TOTAL KNEE, LEFT TOTAL KNEE; lap band removal, Sleeve conversion 07/18/2020. Past Anesthesia/Blood Transfusion Reactions: Previous Problems w/ Anesthesia, Motion Sickness Additional Past Anesthesia/Blood Transfusion Reaction / Comm: " hard time waking up post anesthesia" TAKES LONGER WAKING UP" Past Psychological History: Depression Smoking Status: Former smoker Past Alcohol Use History: Rare Additional Past Alcohol Use History / Comment(s): STARTED SMOKING AT AGE 9 QUIT SMOKING IN 2013 SMOKED 1/4 PPD Past Drug Use History: None Reported - Past Family History Father Family Medical History: Cancer, Deep Vein Thrombosis (DVT) Additional Family Medical History / Comment(s): TONGUE CANCER Surgical - Exam Vital Signs Temp Pulse Resp BP 98.5 F 71 18 118/78 03/20/21 12:56 03/20/21 12:56 03/20/21 12:56 03/20/21 12:56 - General well developed, well nourished, no distress - Eyes PERRL - ENT normal pinna - Neck no masses - Respiratory normal expansion - Cardiovascular Rhythm: regular - Abdomen Abdomen: soft, non tender Bariatric Assessment & Plan Plan: Status post sleeve gastrectomy. Patient is minimal only be observed. She'll follow-up in 4 weeks. Bariatric Checklist Checklist: Plan: Checklist: EGD: 1. Hiatal hernia: 2. H. Pylori: HgbA1c: Vitamin D: Smoking: Primary care physician referral: Dr. Pardo Psychiatry clearance: Cardiology clearance: Sleep study: Diet journal: VTE risk score: VTE risk level: Rehab needs at discharge:
== END ==
LOC: BARWHC3 12:04
PROVIDERS: ATTEND Surgery
DX: Z09 Encounter for follow-up examination after completed treatment for conditions other than malignant neoplasm (principal); K21.9 Gastro-esophageal reflux disease without esophagitis; M19.90 Unspecified osteoarthritis, unspecified site; F32.9 Major depressive disorder, single episode, unspecified; Z98.84 Bariatric surgery status; Z87.891 Personal history of nicotine dependence; Z88.8 Allergy status to other drugs, medicaments and biological substances
CPT/HCPCS: 99211

== ENCOUNTER → 2021-07-03 | Outpatient (CLI) | payer BC ==
[2021-07-03 19:06] LABS: HCT 42.2 % (37.2-46.3); HGB 13.5 g/dL (12.0-15.0); MCH 29.6 pg (27.0-32.0); MCV 92.5 fL (80.0-97.0); Mean Platelet Volume 11.3 fL (9.5-12.2); NRBC Per 100 WBC 0 /100 WBCS (0.0-0.0); Platelet Count 285 X 10*3/uL (140-440); RBC 4.56 X 10*6/uL (4.10-5.20); RDW 13.3 % (11.5-14.5); WBC 5.38 X 10*3/uL (4.50-10.00)
[2021-07-03 20:05] LABS: % Iron Saturation 32.58 (12.00-45.00); ALT 40 U/L (8-44); AST 24 U/L (13-35); African American GFR (CKD) 117.3 (60.0-200.0); Albumin 4.4 g/dL (3.8-4.9); Alkaline Phosphatase 65 U/L (41-126); BUN/Creat Ratio 15.67 Ratio (12.00-20.00); Blood Urea Nitrogen 9.4 mg/dL (9.0-27.0); Calcium 9.4 mg/dL (8.7-10.3); Carbon Dioxide 22.1 mmol/L (20.0-27.5); Chloride 106 mmol/L (96-109); Glucose 69 mg/dL (70-110); Iron 109 ug/dL (50-170); Magnesium 2.1 mg/dL (1.5-2.4); Non-African American GFR(CKD) 101.2 (60.0-200.0); Potassium 4.4 mmol/L (3.5-5.5); Sodium 142 mmol/L (135-145); Total Iron Binding Capacity 335 ug/dL (228-460); Total Protein 6.4 g/dL (6.2-8.2)
[2021-07-04 03:04] LABS: Folate, Serum >20.00 ng/mL (4.40-31.00)
[2021-07-04 12:08] LABS: Zinc, Serum 68 ug/dL (60-130)
[2021-07-05 10:24] LABS: Vit B1(Thiamine) 70 ug/L (38-122)
[2021-07-06 06:45] LABS: Vitamin A 59 ug/dL (38-106)
[2021-07-06 08:31] LABS: Selenium 125 mcg/L (63-160)
== END | disposition home or self-care (01) ==
LOC: LABWHC1 11:13
PROVIDERS: ATTEND Surgery
DX: D50.8 Other iron deficiency anemias (principal); E66.01 Morbid (severe) obesity due to excess calories; E44.0 Moderate protein-calorie malnutrition; E55.9 Vitamin D deficiency, unspecified; T56.894A Toxic effect of other metals, undetermined, initial encounter
CPT/HCPCS: 36415; 80053; 82306; 82607; 82728; 82746; 83540; 83550; 83735; 84255; 84425; 84443; 84590; 84630; 85027

== ENCOUNTER → 2021-07-03 | Outpatient (CLI) | payer BC ==
[2021-07-03 13:16] VITALS: BP 132/80; PULSE 64; RESP 18; TEMP 98.5; BMI 33.1
--- NOTE | 2021-07-03 14:38 | P.HPBAR ---
Bariatric H&P - History & Physicial H&P Date: 07/03/21 History & Physicial: Visit/CC: follow up Patient initial contact: Initial weight: 116.715 kg Initial weight in pounds: 257.31 Height: 5 ft 4 in Initial BMI: 44.1 Last weight: Current weight: 87.543 kg Current weight in pounds: 193.00 Current BMI: 33.1 [place] body weight (based on NIH guidelines): 54.431 kg Excess body weight loss: 46.8% The patient is a 56 year-old F who presents for Bariatric Assessment. Patient presents today for bariatric follow-up. She has had some GERD. Past Medical History Past Medical History: GERD/Reflux, Osteoarthritis (OA) Additional Past Medical History / Comment(s): arthritis History of Any Multi-Drug Resistant Organisms: None Reported Past Surgical History: Bariatric Surgery, Section, Cholecystectomy, Hysterectomy, Orthopedic Surgery, Tonsillectomy Additional Past Surgical History / Comment(s): lap band; RIGHT TOTAL KNEE, LEFT TOTAL KNEE; lap band removal, Sleeve conversion 07/18/2020. Past Anesthesia/Blood Transfusion Reactions: Previous Problems w/ Anesthesia, Motion Sickness Additional Past Anesthesia/Blood Transfusion Reaction / Comm: " hard time waking up post anesthesia" TAKES LONGER WAKING UP" Past Psychological History: Depression Smoking Status: Former smoker Past Alcohol Use History: Rare Additional Past Alcohol Use History / Comment(s): STARTED SMOKING AT AGE 9 QUIT SMOKING IN 2013 SMOKED 1/4 PPD Past Drug Use History: None Reported - Past Family History Father Family Medical History: Cancer, Deep Vein Thrombosis (DVT) Additional Family Medical History / Comment(s): TONGUE CANCER Surgical - Exam Vital Signs Temp Pulse Resp BP 98.5 F 64 18 132/80 07/03/21 13:14 07/03/21 13:14 07/03/21 13:14 07/03/21 13:14 - General well developed, well nourished, no distress - Eyes PERRL - ENT normal pinna, normal nares - Neck no masses - Respiratory normal expansion - Cardiovascular Rhythm: regular - Abdomen Abdomen: soft, non tender Bariatric Assessment & Plan Plan: Resolving morbid obesity. Patient's GERD is minimal will be observed for she'll follow-up in 4 weeks. Bariatric Checklist Checklist: Plan: Checklist: EGD: 1. Hiatal hernia: 2. H. Pylori: HgbA1c: Vitamin D: Smoking: Primary care physician referral: Dr. Pardo Psychiatry clearance: Cardiology clearance: Sleep study: Diet journal: VTE risk score: VTE risk level: Rehab needs at discharge:
== END ==
LOC: BARWHC3 12:27
PROVIDERS: ATTEND Surgery
DX: E66.01 Morbid (severe) obesity due to excess calories (principal); K21.9 Gastro-esophageal reflux disease without esophagitis; M19.90 Unspecified osteoarthritis, unspecified site; Z98.84 Bariatric surgery status; F32.A Depression, unspecified; Z87.891 Personal history of nicotine dependence; Z68.33 Body mass index [BMI] 33.0-33.9, adult; Z88.8 Allergy status to other drugs, medicaments and biological substances
CPT/HCPCS: 99211